=== PATIENT | female | born 1990 | race Caucasian/White ===

== ENCOUNTER 2017-11-23 08:16 | Observation (INO) ==
[2017-11-23] MEDS ORDERED: Haloperidol Lactate 5 MG/ML VIAL ONE (08:18)
[2017-11-23] MEDS ORDERED: Haloperidol Lactate 5 MG/ML VIAL IM ONE (08:27)
[2017-11-23] MEDS ORDERED: Haloperidol Lactate 5 MG/ML VIAL IM PRN (08:28)
[2017-11-23] MEDS ORDERED: *HR* LORazepam 2 MG/ML VIAL IM ONE (08:32)
[2017-11-23] MEDS ORDERED: *HR* LORazepam 2 MG/ML VIAL ONE (08:33)
[2017-11-23] MEDS ORDERED: Ketamine *HR* 500 MG/10 ML MDV IM ONE (08:43)
[2017-11-23 08:56] LABS: Basophils % 0.2 %; Eosinophils # 0.1 K/mcL (0.0-0.6); Hematocrit 37.6 % (35.3-44.9); Hemoglobin 12.7 g/dL (11.5-15.4); Immature Granulocytes % 0.4 % (0-4); Lymphocytes # 2.8 K/mcL (0.6-4.6); Lymphocytes % 21.1 %; Mean Corpuscular HGB Conc 33.8 g/dL (31.6-35.5); Mean Corpuscular Hemoglobin 28.6 pg (28.0-33.3); Mean Corpuscular Volume 84.7 fL (83.0-100.0); Mean Platelet Volume 11.7 fL (9.4-12.4); Monocytes # 0.9 K/mcL (0.0-1.3); Monocytes % 6.7 %; Neutrophils # 9.4 K/mcL (1.6-8.9); Platelet Count 225 K/mcL (140-400); Red Blood Count 4.44 M/mcL (3.82-4.97); Red Cell Distribution Width 13.7 % (11.5-14.5); Segmented Neutrophils % 70.6 %
[2017-11-23 09:12] LABS: Acetaminophen < 10 mcg/mL (10-20); BUN/Creatinine Ratio 11 (6-26); Blood Urea Nitrogen 9 mg/dL (6-20); Calcium 9.4 mg/dL (8.6-10.3); Carbon Dioxide 18 mEq/L (23-29); Chloride 108 mEq/L (98-107); Ethanol < 10 mg/dL (Less than 10); Glucose 73 mg/dL (70-105); Osmolality,Calculated 285 (280-300); Potassium 3.4 mEq/L (3.5-5.1); Sodium 139 mEq/L (136-145); eGFR For Non-African Americans > 60 (> 60)
[2017-11-23 09:59] LABS: Salicylate < 2.5 mg/dL (15.0-30.0)
[2017-11-23 11:42] LABS: Bilirubin,Urine Negative (Negative); Blood,Urine Negative (Negative); Clarity,Urine Clear (Clear); Color,Urine Yellow (Yellow); Glucose,Urine (UA) Normal (Normal); Ketones,Urine 80 mg/dL (Negative); Leukocyte Esterase,Urine Negative (Negative); Nitrite,Urine Negative (Negative); PH,Urine 5.5 pH Units (5.0-8.0); Protein,Urine 30 mg/dL (Neg-Trace); Specific Gravity,Urine 1.024 (1.010-1.025); Urobilinogen,Urine Normal (Normal)
[2017-11-23 11:45] LABS: Bacteria,Urine None Seen per hpf (None-Few); RBC,Urine 0-3 per hpf (0-3); Squamous Epithelial Cell,Urine Many per lpf (None-Few); WBC,Urine 0-3 per hpf (0-3)
--- NOTE | 2017-11-23 11:45 | Emergency Department Note ---
Disposition Clinical Impression: Altered mental status Qualifiers: Altered mental status type: unspecified Qualified Code(s): R41.82 - Altered mental status, unspecified Disposition: Admitted As Inpatient Condition: Good General Adult HPI - General Chief complaint: ED Psychiatric Symptoms Stated complaint: Psych Time Seen by Provider: 11/23/17 08:19 Source: EMS Mode of arrival: ambulatory Limitations: no limitations Nursing Notes Reviewed: Yes Vital Signs Reviewed: Yes - History of Present Illness HPI Narrative: Patient brought in by EMS as well as the police for evaluation of altered mental status and violent behavior. Wool Handler were called secondary to someone in the house concerned about her status as she was sleeping in her bed and most of been hard to arouse. Upon please arrival the patient is been combative and accusatory in nature as she states that EMS and the plant assigner are perverted. She states that she did not initially have close on in bed and was upset about this. She was very physically violent staff as well as verbally abusive. She was spitting on staff. Her accusations do not make sense. She has tangential thoughts and is easily distracted. Concern for polypharmacy and intoxication as a potential source. The patient refuses to answer any other questions in regards to what is happening. Patient will receive Haldol and further testing. Pain Scale: 0 - Related Data Home Medications Medication Instructions Recorded Confirmed Unable To Obtain [Unable to Obtain] 11/23/17 11/23/17 Allergies Allergy/AdvReac Type Severity Reaction Status Date / Time acetaminophen [From Vicodin] Allergy Rash Verified 08/24/16 10:10 hydrocodone [From Vicodin] Allergy Rash Verified 08/24/16 10:10 promethazine [From Phenergan] Allergy Rash Verified 08/24/16 10:10 propoxyphene Allergy Rash Verified 08/24/16 10:10 [From Darvocet-N] Limitations: ROS unobtainable due to patients medical condition Past Medical History - Past Medical History Medical history: Reports: other Psychiatric history: Reports: anxiety, depression - Social History Smoking Status: Current every day smoker Smokeless Tobacco Status: No Alcohol use: Reports: rarely Drug use: Reports: unknown, marijuana Physical Exam General: Yelling and spitting on staff. Head: Normocephalic Atraumatic Eyes: PERRL, EOMI ENT: Airway patent, no stridor Neck: supple, no meningismus Chest: Lungs clear to auscultation bilateral Cardiac: Regular rate and rhythm, no murmurs, rubs or gallops Abdomen: soft, nontender, nondistended; no guarding, rebound, or tenderness to percussion Musculoskeletal: Moves all 4 extremities. Patient was placed in handcuffs prior to arrival in her extremities remain to be in restraints. Skin: No rash, normal skin tone Neuro: Patient is awake and agitated and yelling and spitting on staff. - General General appearance: alert, appears intoxicated, anxious Course - Reevaluation(s) Reevaluation #1: Haldol and Ativan were given after initial Haldol did not sufficiently sedate the patient. She is now calm and resting. She is on a monitor. No distress and stable vital signs. Reevaluation #2: Patient admitted for agitated delirium secondary to polysubstance abuse. Patient currently resting comfortably and arousable. Patient will need admission secondary to sedating effects of medications given in the emergency department. - Consultations Consultation #1: [facility] Patient accepted for [facility]. Vital Signs Temperature 97.7 F 11/23/17 08:19 Pulse Rate 130 11/23/17 08:19 Respiratory Rate 18 11/23/17 08:19 Blood Pressure 138/122 11/23/17 08:19 O2 Sat by Pulse Oximetry 98 11/23/17 08:19 Temperature 97.7 F 11/23/17 08:42 Pulse Rate 94 11/23/17 08:42 Respiratory Rate 20 11/23/17 08:42 Blood Pressure 97/66 11/23/17 08:42 O2 Sat by Pulse Oximetry 96 11/23/17 08:42 Oxygen Delivery Oxygen Delivery Room Air Medical Decision Making - Lab Data Result diagrams: 11/23/17 08:42 11/23/17 08:42 Lab Results 11/23/17 11/23/17 11/23/17 Range/Units 08:42 08:42 11:30 WBC 13.4 H (4.3-11.1) K/mcL RBC 4.44 (3.82-4.97) M/mcL Hgb 12.7 (11.5-15.4) g/dL Hct 37.6 (35.3-44.9) % MCV 84.7 (83.0-100.0) fL MCH 28.6 (28.0-33.3) pg MCHC 33.8 (31.6-35.5) g/dL RDW 13.7 (11.5-14.5) % Plt Count 225 (140-400) K/mcL MPV 11.7 (9.4-12.4) fL Immature Gran % 0.4 (0-4) % Seg Neutrophils % 70.6 % Lymphocytes % 21.1 % Monocytes % 6.7 % Eosinophils % 1.0 % Basophils % 0.2 % Neutrophils # 9.4 H (1.6-8.9) K/mcL Lymphocytes # 2.8 (0.6-4.6) K/mcL Monocytes # 0.9 (0.0-1.3) K/mcL Eosinophils # 0.1 (0.0-0.6) K/mcL Basophils # 0.0 (0.0-0.2) K/mcL Sodium 139 (136-145) mEq/L Potassium 3.4 L (3.5-5.1) mEq/L Chloride 108 H (98-107) mEq/L Carbon Dioxide 18 L (23-29) mEq/L BUN 9 (6-20) mg/dL Creatinine 0.79 (0.60-1.20) mg/dL Est GFR ( Amer) > 60 (> 60) Est GFR (Non-Af Amer) > 60 (> 60) BUN/Creatinine Ratio 11 (6-26) Glucose 73 (70-105) mg/dL Calculated Osmolality 285 (280-300) Calcium 9.4 (8.6-10.3) mg/dL Urine Color Yellow (Yellow) Urine Clarity Clear (Clear) Urine pH 5.5 (5.0-8.0) pH Units Ur Specific [place] 1.024 (1.010-1.025) Urine Protein 30 H (Neg-Trace) mg/dL Urine Glucose (UA) Normal (Normal) mg/dL Urine Ketones 80 H (Negative) mg/dL Urine Blood Negative (Negative) Urine Nitrite Negative (Negative) Urine Bilirubin Negative (Negative) Urine Urobilinogen Normal (Normal) mg/dL Ur Leukocyte Esterase Negative (Negative) Urine Microscopic RBC 0-3 (0-3) per hpf Urine Microscopic WBC 0-3 (0-3) per hpf Ur Squamous Epith Cells Many H (None-Few) per lpf Urine Bacteria None Seen (None-Few) per hpf Hyaline Casts Few (None-Few) per lpf Urine Test (Negative) Salicylates < 2.5 L (15.0-30.0) mg/dL Urine Opiates Screen (Ftxszt=354) ng/mL Acetaminophen < 10 L (10-20) mcg/mL Ur Barbiturates Screen (Temaqz=644) ng/mL Ur Phencyclidine Scrn (Cutoff=25) ng/mL Ur Amphetamines Screen (Sdlshh=1190) ng/mL U Benzodiazepines Scrn (Ncrmwt=857) ng/mL Urine Cocaine Screen (Cutoff= 300) ng/mL U Marijuana (THC) Screen (Cutoff = 50) ng/mL Ur Drug Screen Interp Ethyl Alcohol < 10 (Less than 10) mg/dL 11/23/17 11/23/17 Range/Units 11:30 11:30 WBC (4.3-11.1) K/mcL RBC (3.82-4.97) M/mcL Hgb (11.5-15.4) g/dL Hct (35.3-44.9) % MCV (83.0-100.0) fL MCH (28.0-33.3) pg MCHC (31.6-35.5) g/dL RDW (11.5-14.5) % Plt Count (140-400) K/mcL MPV (9.4-12.4) fL Immature Gran % (0-4) % Seg Neutrophils % % Lymphocytes % % Monocytes % % Eosinophils % % Basophils % % Neutrophils # (1.6-8.9) K/mcL Lymphocytes # (0.6-4.6) K/mcL Monocytes # (0.0-1.3) K/mcL Eosinophils # (0.0-0.6) K/mcL Basophils # (0.0-0.2) K/mcL Sodium (136-145) mEq/L Potassium (3.5-5.1) mEq/L Chloride (98-107) mEq/L Carbon Dioxide (23-29) mEq/L BUN (6-20) mg/dL Creatinine (0.60-1.20) mg/dL Est GFR ( Amer) (> 60) Est GFR (Non-Af Amer) (> 60) BUN/Creatinine Ratio (6-26) Glucose (70-105) mg/dL Calculated Osmolality (280-300) Calcium (8.6-10.3) mg/dL Urine Color (Yellow) Urine Clarity (Clear) Urine pH (5.0-8.0) pH Units Ur Specific [place] (1.010-1.025) Urine Protein (Neg-Trace) mg/dL Urine Glucose (UA) (Normal) mg/dL Urine Ketones (Negative) mg/dL Urine Blood (Negative) Urine Nitrite (Negative) Urine Bilirubin (Negative) Urine Urobilinogen (Normal) mg/dL Ur Leukocyte Esterase (Negative) Urine Microscopic RBC (0-3) per hpf Urine Microscopic WBC (0-3) per hpf Ur Squamous Epith Cells (None-Few) per lpf Urine Bacteria (None-Few) per hpf Hyaline Casts (None-Few) per lpf Urine Test Negative (Negative) Salicylates (15.0-30.0) mg/dL Urine Opiates Screen Negative (Przmyf=740) ng/mL Acetaminophen (10-20) mcg/mL Ur Barbiturates Screen Negative (Cvpftj=006) ng/mL Ur Phencyclidine Scrn Negative (Cutoff=25) ng/mL Ur Amphetamines Screen Positive H (Dfcqgs=8584) ng/mL U Benzodiazepines Scrn Positive H (Emvvzx=235) ng/mL Urine Cocaine Screen Negative (Cutoff= 300) ng/mL U Marijuana (THC) Screen Positive H (Cutoff = 50) ng/mL Ur Drug Screen Interp See Below Ethyl Alcohol (Less than 10) mg/dL
[2017-11-23 11:53] LABS: Hyaline Casts,Urine Few per lpf (None-Few)
[2017-11-23 11:56] LABS: Amphetamine Screen,Urine Positive ng/mL (Cutoff=1000); Barbiturate Screen,Urine Negative ng/mL (Cutoff=200); Benzodiazepines Screen,Urine Positive ng/mL (Cutoff=200); Cannabinoid Screen,Urine Positive ng/mL (Cutoff = 50); Cocaine Screen,Urine Negative ng/mL (Cutoff= 300); Opiate Screen,Urine Negative ng/mL (Cutoff=300); Phencyclidine Screen,Urine Negative ng/mL (Cutoff=25)
[2017-11-23] MEDS ORDERED: Naloxone 0.4 MG/ML INJ IVP PRN (15:16)
--- NOTE | 2017-11-23 15:30 | Internal Med History&Physical ---
Date of Encounter: 11/23/17 Time of Encounter: 15:25 Internal Medicine - H&P: HPI Chief complaint: Heart mental status Admitted From: Home Plans for Post Hospital Care: Home History of present illness: Information obtained from ER documentation, patient noncooperative. Ms. Bowling is a 27 year old female with no significant past medical history. Patient was brought to the hospital from home after patient was found to the very lethargic at home. When the Diagrammer arrived at per ER note patient was violent and behaving erratically for which she was brought to the ED. Hospitalist team called for admission. Past Med Surg Social Fam HX - Past Medical History Medical history: other Additional medical history: ablation-no periods Psychiatric history: anxiety, depression - Past Surgical History Additional surgical history: ablation, tubal ligation - Social History Smoking Status: Current every day smoker Smokeless Tobacco Status: No Alcohol use: rarely Drug use: unknown, marijuana Internal Medicine - H&P: Meds Unable To Obtain [Unable to Obtain] 11/23/17 [History] 3 Allergy/AdvReac Type Severity Reaction Status Date / Time acetaminophen [From Vicodin] Allergy Rash Verified 08/24/16 10:10 hydrocodone [From Vicodin] Allergy Rash Verified 08/24/16 10:10 promethazine [From Phenergan] Allergy Rash Verified 08/24/16 10:10 propoxyphene Allergy Rash Verified 08/24/16 10:10 [From Darvocet-N] ROS unobtainable: due to mental status All Systems PM: A 10-system review of systems was performed and is negative for pertinent findings except as documented above in the HPI. - Constitutional Vitals: Temp Pulse Resp BP Pulse Ox 97.7 F 82 19 86/54 99 11/23/17 08:42 11/23/17 14:15 11/23/17 14:15 11/23/17 14:15 11/23/17 14:15 Exam: General: patient wakes up to verbal commands, Skin: Normal color, no rash, no lesions. HEENT: patient won't allow me to evaluate Cardiovascular: Normal S1 & S2, no rubs, murmurs or gallops. No JVD. Pulse regular. Lungs: Normal breath sounds, no wheezes or crackles. Abdomen: Soft, non-tender, no rigidity. Extremities: No deformity, no edema or tenderness, no joint swelling or clubbing. Neurological: not following commands, mumbling some incoherent words. Not meningeal sings Internal Med - H&P Results - Labs CBC & Chem 7: 11/23/17 08:42 11/23/17 08:42 - Assessment and plan (1) Altered mental status Current Visit: Yes Status: Acute Assessment and plan: Possibly secondary to substance abuse. Urine drug screen is positive for multiple substances. Plan: - Keep nothing by mouth - Started D5 normal saline and 125 - Falls precaution Qualifiers: Altered mental status type: somnolence Qualified Code(s): R40.0 - Somnolence (2) Substance abuse Current Visit: Yes Status: Acute (3) Leukocytosis Current Visit: Yes Status: Acute Assessment and plan: Possibly reactive Plan: - Started empirically on ceftriaxone 1 g daily - UA reflex culture Qualifiers: Leukocytosis type: unspecified Qualified Code(s): D72.829 - Elevated white blood cell count, unspecified (4) DVT prophylaxis Current Visit: Yes Status: Acute Assessment and plan: Low risk. Plan: - Heparin 5000 units SubQ Q12HR - Time Spent With Patient Total time spent is greater than 50% in coordination of care (as documented) at patient's floor/unit and/or counseling patient:
[2017-11-23] MEDS ORDERED: cefTRIAXone 1,000 MG in Water for inj. (sterile) 20 ML 10 ML IVP SCH (16:00)
[2017-11-23] MEDS: D5% in 0.9% NACL 1,000 ML IVC SCH (17:10)
[2017-11-23] MEDS: *HR* Heparin 5,000 UNIT/ML VIAL SQ SCH (17:11)
[2017-11-24] MEDS: D5% in 0.9% NACL 1,000 ML IVC SCH (01:19)
[2017-11-24] MEDS: *HR* Heparin 5,000 UNIT/ML VIAL SQ SCH (05:39)
[2017-11-24 06:27] VITALS: BP 112/72
--- NOTE | 2017-11-24 08:45 | Discharge Summary ---
- NOTES TO OUTPATIENT PROVIDER Notes to Outpatient Provider: Outpatient substance abuse counseling. Orders not resulted at time of discharge: Pending orders 11/24/17 07:36 CBC [Complete Blood Count] [HEME] Routine 11/24/17 07:37 BMP [Basic Metabolic Panel] Routine Date of Encounter: 11/24/17 Time of Encounter: 08:42 - Discharge Diagnosis (1) Substance abuse Priority: Primary Status: Acute (2) Altered mental status Priority: Secondary Status: Resolved Qualifiers: Altered mental status type: somnolence Qualified Code(s): R40.0 - Somnolence (3) Leukocytosis Priority: Secondary Status: Acute Qualifiers: Leukocytosis type: unspecified Qualified Code(s): D72.829 - Elevated white blood cell count, unspecified (4) DVT prophylaxis Priority: Secondary Status: Acute Hospital course: Ms. Bowling is a 27 year old female with no significant past medical history who was brought to the emergency room from home due to erratic, aggressive behavior and lethargy. In the emergency room urine drug screen positive for multiple substances. The patient was placed under observation and treated with Haldol and IV fluids, reactive leukocytosis empirically covered with ceftriaxone. Today patient evaluated at bedside, alert oriented 3. In no distress. - Time Spent with Patient Total time spent providing and/or coordinating discharge services: Greater than 30 minutes - Discharge Medications Home Medications: Unable To Obtain [Unable to Obtain] 11/23/17 [History] Allergies/Adverse Reactions: 3 Allergy/AdvReac Type Severity Reaction Status Date / Time acetaminophen [From Vicodin] Allergy Rash Verified 08/24/16 10:10 hydrocodone [From Vicodin] Allergy Rash Verified 08/24/16 10:10 promethazine [From Phenergan] Allergy Rash Verified 08/24/16 10:10 propoxyphene Allergy Rash Verified 08/24/16 10:10 [From Darvocet-N] Date of admission: 11/23/17 12:58 Primary care physician: PCP NONE - Constitutional Vitals: Temp Pulse Resp BP Pulse Ox 98.0 F 70 15 112/72 96 11/24/17 06:25 11/24/17 06:25 11/24/17 06:25 11/24/17 06:25 11/24/17 06:25 Exam: General: Alert and oriented Skin:Normal color, no rash, no lesions. HEENT:EOM, pupils equal, round and reactive. Cardiovascular:Normal S1 & S2, no rubs, murmurs or gallops. No JVD. Pulse regular. Lungs: Clear to auscultation, no wheezes or crackles. Abdomen:Soft, non-tender, no rigidity. Extremities:No deformity, no edema or tenderness, no joint swelling or clubbing. Neurological:Normal cognition and motor skills. Rest of the physical exam is non contributory - Patient Status Disposition: Home, Self-Care Condition: Good Functional capacity at discharge: independent ambulation Overall status at discharge: patient is back to baseline - Discharge Instructions Forms: ED Satisfaction Letter - Diet and Activity Activity: increase activity as tolerated Diet: advance to your usual diet
[2017-11-24 09:37] LABS: Basophils % 0.6 %; Eosinophils # 0.1 K/mcL (0.0-0.6); Eosinophils % 2.7 %; Hematocrit 37.5 % (35.3-44.9); Hemoglobin 12.6 g/dL (11.5-15.4); Immature Granulocytes % 0.4 % (0-4); Lymphocytes # 1.2 K/mcL (0.6-4.6); Lymphocytes % 24.3 %; Mean Corpuscular HGB Conc 33.6 g/dL (31.6-35.5); Mean Corpuscular Hemoglobin 29.6 pg (28.0-33.3); Mean Corpuscular Volume 88.2 fL (83.0-100.0); Mean Platelet Volume 11.8 fL (9.4-12.4); Monocytes # 0.4 K/mcL (0.0-1.3); Monocytes % 6.8 %; Neutrophils # 3.3 K/mcL (1.6-8.9); Platelet Count 164 K/mcL (140-400); Red Blood Count 4.25 M/mcL (3.82-4.97); Red Cell Distribution Width 13.8 % (11.5-14.5); Segmented Neutrophils % 65.2 %
[2017-11-24 09:46] LABS: BUN/Creatinine Ratio 11 (6-26); Blood Urea Nitrogen 7 mg/dL (6-20); Calcium 8.2 mg/dL (8.6-10.3); Carbon Dioxide 21 mEq/L (23-29); Chloride 112 mEq/L (98-107); Glucose 124 mg/dL (70-105); Osmolality,Calculated 285 (280-300); Potassium 3.4 mEq/L (3.5-5.1); Sodium 138 mEq/L (136-145); eGFR For Non-African Americans > 60 (> 60)
[2017-11-24] MEDS ORDERED: Potassium Chloride Elixir 20 MEQ/15 ML UDC PO ONE (11:56)
== END 2017-11-24 16:14 | disposition home or self-care (01) ==
LOC: 3BNU 08:16 → EMEROOARM 08:16 → 3BNU 13:58
PROVIDERS: ADMIT Internal Medicine; ATTEND Internal Medicine

== ENCOUNTER 2020-08-02 12:12 | Inpatient (IN) ==
[2020-08-02 12:52] LABS: Bilirubin,Urine Negative (Negative); Blood,Urine Negative (Negative); Clarity,Urine Clear (Clear); Color,Urine Light-Yellow (Yellow); Glucose,Urine (UA) Normal (Normal); Ketones,Urine Negative (Negative); Leukocyte Esterase,Urine Negative (Negative); Nitrite,Urine Negative (Negative); Protein,Urine Trace mg/dL (Neg-Trace); Specific Gravity,Urine 1.028 (1.010-1.025); Urobilinogen,Urine Normal (Normal)
[2020-08-02 13:03] LABS: Amphetamine Screen,Urine Positive ng/mL (Cutoff=1000); Barbiturate Screen,Urine Negative ng/mL (Cutoff=200); Benzodiazepines Screen,Urine Negative ng/mL (Cutoff=200); Cannabinoid Screen,Urine Positive ng/mL (Cutoff = 50); Cocaine Screen,Urine Positive ng/mL (Cutoff= 300); Opiate Screen,Urine Negative ng/mL (Cutoff=300); Phencyclidine Screen,Urine Negative ng/mL (Cutoff=25)
[2020-08-02 13:13] LABS: Basophils % 0.1 %; Eosinophils % 0.1 %; Hematocrit 38.6 % (35.3-44.9); Hemoglobin 12.9 g/dL (11.5-15.4); Immature Granulocytes % 0.4 % (0-4); Lymphocytes # 1.4 K/mcL (0.6-4.6); Mean Corpuscular HGB Conc 33.4 g/dL (31.6-35.5); Mean Corpuscular Hemoglobin 29.5 pg (28.0-33.3); Mean Corpuscular Volume 88.1 fL (83.0-100.0); Mean Platelet Volume 11.3 fL (9.4-12.4); Monocytes % 6.8 %; Neutrophils # 11.7 K/mcL (1.6-8.9); Platelet Count 212 K/mcL (140-400); Red Blood Count 4.38 M/mcL (3.82-4.97); Red Cell Distribution Width 13.6 % (11.5-14.5); Segmented Neutrophils % 82.6 %; White Blood Count 14.2 K/mcL (4.3-11.1)
[2020-08-02 13:25] LABS: Activated Partial Thrombo Time 25.4 Seconds (26.0-36.0); Prothrombin Time 11.5 Seconds (9.4-12.1)
[2020-08-02 13:38] LABS: Acetaminophen < 10 mcg/mL (10-20); BUN/Creatinine Ratio 19 (6-26); Blood Urea Nitrogen 16 mg/dL (6-20); Calcium 10.1 mg/dL (8.6-10.3); Carbon Dioxide 25 mEq/L (23-29); Chloride 104 mEq/L (98-107); Glucose 93 mg/dL (70-105); Osmolality,Calculated 285 (280-300); Potassium 3.9 mEq/L (3.5-5.1); Salicylate < 2.5 mg/dL (15.0-30.0); Sodium 137 mEq/L (136-145); Troponin I < 0.03 ng/mL (< 0.04); eGFR For African Americans > 60 (> 60); eGFR For Non-African Americans > 60 (> 60)
[2020-08-02 13:42] LABS: Thyroid Stimulating Hormone 4.586 mcIU/mL (0.340-5.600)
[2020-08-02] MEDS ORDERED: *HR* LORazepam 2 MG/ML VIAL IM ONE (14:13)
[2020-08-02] MEDS ORDERED: Haloperidol Lactate 5 MG/ML VIAL IM ONE (14:13)
[2020-08-02] MEDS ORDERED: *HR* LORazepam 1 MG TABLET PO PRN (16:21)
[2020-08-02] MEDS ORDERED: hydrOXYzine pamoate 25 MG CAPSULE PO PRN (16:21)
[2020-08-02] MEDS ORDERED: Haloperidol Lactate 5 MG/ML VIAL IM PRN (16:21)
[2020-08-02] MEDS ORDERED: haloperidoL 5 MG TABLET PO PRN (16:21)
[2020-08-02] MEDS ORDERED: *HR* LORazepam 2 MG/ML VIAL IM PRN (16:21)
[2020-08-02] MEDS ORDERED: OLANZapine 10 MG TAB.RAPDIS PO PRN (16:23)
[2020-08-02] MEDS: QUEtiapine Fumarate 100 MG TABLET PO SCH (20:57)
[2020-08-03] MEDS: QUEtiapine Fumarate 100 MG TABLET PO SCH (21:16)
[2020-08-04] MEDS ORDERED: Simethicone 80 MG TAB.CHEW PO PRN (17:32)
[2020-08-04] MEDS: Benzocaine 20% 12 APPL GEL..GRAM. TP SCH (19:59)
[2020-08-04] MEDS: QUEtiapine Fumarate 100 MG TABLET PO SCH (20:56)
[2020-08-05] MEDS: Benzocaine 20% 12 APPL GEL..GRAM. TP SCH ×3 (09:51→20:31)
[2020-08-05] MEDS: QUEtiapine Fumarate 100 MG TABLET PO SCH (20:32)
[2020-08-06] MEDS: Benzocaine 20% 12 APPL GEL..GRAM. TP SCH ×3 (08:29→21:13)
[2020-08-07] MEDS: Benzocaine 20% 12 APPL GEL..GRAM. TP SCH ×3 (10:33→20:41)
[2020-08-08] MEDS: Benzocaine 20% 12 APPL GEL..GRAM. TP SCH ×3 (09:33→22:21)
[2020-08-08] MEDS ORDERED: Loratadine 10 MG TABLET PO ONE ×2 (14:45→22:30)
[2020-08-08] MEDS: Fluticasone Propionate Nasal 50 MCG/SPRAY BOTTLE NS SCH (16:34)
[2020-08-09] MEDS: Benzocaine 20% 12 APPL GEL..GRAM. TP SCH ×3 (08:36→20:52)
[2020-08-09] MEDS: Fluticasone Propionate Nasal 50 MCG/SPRAY BOTTLE NS SCH (08:36)
[2020-08-09] MEDS ORDERED: Loratadine 10 MG TABLET PO SCH (09:00)
[2020-08-09] MEDS: Loratadine 10 MG TABLET PO SCH (20:51)
[2020-08-10] MEDS: Loratadine 10 MG TABLET PO SCH ×2 (09:44→20:30)
[2020-08-10] MEDS: Fluticasone Propionate Nasal 50 MCG/SPRAY BOTTLE NS SCH (09:45)
[2020-08-10] MEDS: OLANZapine 5 MG TAB.RAPDIS PO SCH (20:30)
[2020-08-11] MEDS: Fluticasone Propionate Nasal 50 MCG/SPRAY BOTTLE NS SCH (09:22)
[2020-08-11] MEDS: Loratadine 10 MG TABLET PO SCH ×2 (09:22→21:30)
[2020-08-11] MEDS: OLANZapine 5 MG TAB.RAPDIS PO SCH (21:30)
[2020-08-11] MEDS: Ibuprofen 400 MG TABLET PO PRN (21:32)
[2020-08-12] MEDS: Loratadine 10 MG TABLET PO SCH ×2 (09:00→20:25)
[2020-08-12] MEDS: Fluticasone Propionate Nasal 50 MCG/SPRAY BOTTLE NS SCH (09:01)
[2020-08-12] MEDS: Multivit/Ca/Min/Fe/FA 1 TAB TABLET PO SCH (15:00)
[2020-08-12] MEDS: OLANZapine 5 MG TAB.RAPDIS PO SCH (20:25)
[2020-08-13] MEDS: Fluticasone Propionate Nasal 50 MCG/SPRAY BOTTLE NS SCH (09:18)
[2020-08-13] MEDS: Multivit/Ca/Min/Fe/FA 1 TAB TABLET PO SCH (09:18)
[2020-08-13] MEDS: Loratadine 10 MG TABLET PO SCH ×2 (09:18→21:16)
[2020-08-13] MEDS: OLANZapine 5 MG TAB.RAPDIS PO SCH (21:16)
[2020-08-14] MEDS: Ibuprofen 400 MG TABLET PO PRN (07:50)
[2020-08-14] MEDS: Multivit/Ca/Min/Fe/FA 1 TAB TABLET PO SCH (08:30)
[2020-08-14] MEDS: Loratadine 10 MG TABLET PO SCH ×2 (08:30→20:36)
[2020-08-14] MEDS: Fluticasone Propionate Nasal 50 MCG/SPRAY BOTTLE NS SCH (08:31)
[2020-08-14] MEDS ORDERED: Acetaminophen 325 MG TABLET PO PRN (09:29)
[2020-08-14] MEDS: OLANZapine 5 MG TAB.RAPDIS PO SCH (20:37)
[2020-08-15] MEDS: Loratadine 10 MG TABLET PO SCH ×2 (09:32→21:02)
[2020-08-15] MEDS: Multivit/Ca/Min/Fe/FA 1 TAB TABLET PO SCH (09:32)
[2020-08-15] MEDS: Fluticasone Propionate Nasal 50 MCG/SPRAY BOTTLE NS SCH (09:33)
[2020-08-15] MEDS: OLANZapine 5 MG TAB.RAPDIS PO SCH (21:02)
[2020-08-16] MEDS: Loratadine 10 MG TABLET PO SCH ×2 (08:34→20:37)
[2020-08-16] MEDS: Multivit/Ca/Min/Fe/FA 1 TAB TABLET PO SCH (08:34)
[2020-08-16] MEDS: Fluticasone Propionate Nasal 50 MCG/SPRAY BOTTLE NS SCH (08:34)
[2020-08-16] MEDS: OLANZapine 5 MG TAB.RAPDIS PO SCH (20:37)
[2020-08-17] MEDS: Fluticasone Propionate Nasal 50 MCG/SPRAY BOTTLE NS SCH (09:36)
[2020-08-17] MEDS: Loratadine 10 MG TABLET PO SCH ×2 (09:36→21:03)
[2020-08-17] MEDS: Multivit/Ca/Min/Fe/FA 1 TAB TABLET PO SCH (09:37)
[2020-08-17] MEDS ORDERED: OLANZapine 10 MG TAB.RAPDIS PO SCH (21:00)
[2020-08-18] MEDS: Multivit/Ca/Min/Fe/FA 1 TAB TABLET PO SCH (09:31)
[2020-08-18] MEDS: Fluticasone Propionate Nasal 50 MCG/SPRAY BOTTLE NS SCH (09:32)
[2020-08-18] MEDS: Loratadine 10 MG TABLET PO SCH (09:32)
[2020-08-18 09:35] VITALS: BP 91/65
[2020-08-18] MEDS ORDERED: OLANZapine 10 MG TAB.RAPDIS PO SCH (21:00)
== END 2020-08-18 18:35 | disposition home or self-care (01) | DRG 750 ==
LOC: EMEROOARM 12:12 → 1ANU 16:19
PROVIDERS: ADMIT Psychiatry & Neurology Forensic Psychiatry; ATTEND Psychiatry & Neurology Forensic Psychiatry